=== PATIENT | female | born 1940 | race Caucasian/White ===

== ENCOUNTER 2022-10-08 19:35 | Emergency (ER) | payer MEDICARE, SELFPAY ==
[2022-10-08 19:36] VITALS: BP 174/72; PULSE 110; RESP 18; TEMP 36.6; O2SAT 97
[2022-10-08 19:52] LABS: Absolute Lymphocyte Count 4.32 X10^3/uL (0.83-4.51); Absolute Neutrophil Count 6.3 X10^3/uL (2.0-7.7); Basophil# 0.08 X10^3/uL; Basophil% 0.7 % (0-1); Eosinophil# 0.21 X10^3/uL; Eosinophils% 1.8 % (0-5); Hematocrit 35.2 % (37-47); Hemoglobin 12.6 g/dL (12.0-15.0); Lymphocyte # 4.32 X10^3/ul (0.83-4.51); Lymphocyte % 36.3 % (19-41); Mean Corp Hgb Conc 35.8 g/dL (32-36); Mean Corpuscular Hgb 30.2 pg (27.0-32.0); Mean Corpuscular Volume 84.4 fL (81-99); Mean Platelet Vol. 8.4 fl (6.2-12.0); Monocyte# 0.95 X10^3/uL; NRBC Flagged by Analyzer 0 % (0-5); Neutrophil # 6.28 X10^3/uL (2.7-7.7); Neutrophil % 52.7 % (47-70); Platelet Count 289 K/mm3 (150-450); RBC Distribution Width SD 37.1 fl (35.1-43.9); Red Blood Count 4.17 M/mm3 (4.2-5.4); White Blood Count 11.9 K/mm3 (4.4-11.0)
[2022-10-08 20:13] LABS: Anion Gap 9 (5-15); BUN 27 mg/dL (7-18); BUN/Creat Ratio 21.6 RATIO (10-20); Calcium,Total 8.9 mg/dL (8.5-10.1); Chloride 101 mmol/L (98-107); Creatinine, Serum 1.25 mg/dL (0.55-1.02); EST Glomerular Filtration Rate 43 mL/min (>60); Est Glom Filt Rate - Afr Amer 53 mL/min (>60); Glucose 238 mg/dL (74-106); Potassium 3.7 mmol/L (3.5-5.1); Sodium Level 130 mmol/L (136-145)
--- NOTE | 2022-10-08 20:25 | CT_ITS ---
We are attempting to reach an attending provider to discuss findings. An addendum with communication details will be sent when the communication is complete. EXAM: CT ABDOMEN AND PELVIS WITH INTRAVENOUS CONTRAST CLINICAL INDICATION: pain, bleeding TECHNIQUE: Helically acquired images were obtained of the abdomen and pelvis with intravenous contrast. CTDIvol = ( 12.92 ) mGy, DLP = ( 847.69 ) mGycm This CT exam was performed using one or more of the following dose reduction techniques: automated exposure control, adjustment of the mA and/or kV according to patient size, and/or use of iterative reconstruction technique. This report was created using [employer] report [employer]ot[employer] technology. CONTRAST: IV 75mL Isovue-370 COMPARISON: None. FINDINGS: LOWER THORAX: Unremarkable. Lung bases are clear. No cardiomegaly. No significant pericardial effusion. ABDOMEN: LIVER: Unremarkable. Homogeneous. No focal mass. GALLBLADDER AND BILE DUCTS: Prior cholecystectomy. No intra- or extrahepatic biliary ductal dilation. PANCREAS: Unremarkable. No focal cystic or solid mass. SPLEEN: 1.4 cm hypodense lesion involving the posterior aspect of the spleen is nonaggressive in appearance and probably benign. ADRENALS: Unremarkable. No nodules. KIDNEYS AND URETERS: Bilateral renal cysts and too small to categorize hypodensities. No other renal masses or pathology. Normal renal size and position. No hydronephrosis. STOMACH AND BOWEL: Surgical anastomosis involving the sigmoid colon. Active bleeding in the rectum. Distal colonic diverticulosis but no acute diverticulitis. No colitis. No bowel obstruction. PELVIS: APPENDIX: No evidence of acute appendicitis. BLADDER: Unremarkable. REPRODUCTIVE: Unremarkable as visualized. No mass. ABDOMEN and PELVIS: INTRAPERITONEAL SPACE: Unremarkable. No ascites or other fluid collection. No free air. BONES/JOINTS: Moderate hip osteoarthrosis bilaterally. Degenerative changes of the pelvis and spine. No suspicious lytic or blastic abnormality. SOFT TISSUES: Unremarkable. No discrete abdominal or pelvic wall hernia. VASCULATURE: Unremarkable. Abdominal aorta is non-dilated. LYMPH NODES: Unremarkable. No enlarged lymph nodes. CT/Abdomen/Pelvis W IV Cont ONLY IMPRESSION: Active bleeding in the rectum. Incidental finding of an incompletely imaged noncalcified 6 mm nodule at the right lower lobe. Suggest a dedicated chest CT (nonemergent) to evaluate for other nodules. Electronically Signed: Farhad Vallejo MD at 21:49 EDT ,
--- NOTE | 2022-10-08 20:27 | ED.VIS.GI ---
HPI HPI - GI History of Present Illness Chief Complaint: GI Bleed Informant: patient Narrative Narrative: Patient presents with bright red blood per rectum. She has had problems with this for about 2 years. She has a long history of internal and external hemorrhoids. She has had surgery on them twice. She states this just started bleeding about 530 this evening. She has had multiple episodes with bright red blood and some clots. She is not lightheaded or dizzy. No chest pain. She states she is really not getting any abdominal pain. She gets some rectal discomfort when she sits down. She is not on any anticoagulation. Although ibuprofen is on her med list she is not taking this. She is taking lisinopril hydrochlorothiazide and a thyroid medicine only. She does not take baby aspirin. She is not on any other anticoagulation. There are no other areas of bleeding. Nothing makes it specifically better or worse. She was in her normal state of health when this started bleeding. PFSH PFS Home Medications lisinopril 10 mg-hydrochlorothiazide 12.5 mg tablet 10 - 12.5 mg PO DAILY 01/16/16 [History Last Taken Unknown] levothyroxine 25 mcg tablet 25 mcg PO DAILY 10/08/22 [History Last Taken Unknown] Allergy/AdvReac Type Severity Reaction Status Date / Time latex Allergy Rash Verified 10/08/22 19:37 Sulfa (Sulfonamide AdvReac Unknown Verified 10/08/22 19:37 Antibiotics) Social History Smoking Status: Former smoker ROS ROS ED ROS Narrative A complete review of systems was performed and is negative except as documented in the history of present illness. Some specific details below. Constitutional: No recent fevers or chills. EYE: No visual complaints or pain. ENT: No difficulty swallowing. No swelling. No pain. No dental or gum bleeding CV: No chest pain or palpitations. Respiratory: No dyspnea. No hemoptysis. No difficulty taking breaths. GI: Please see history of present illness. : No frequency dysuria or hematuria. Musculoskeletal: No recent trauma. No pains. Skin: No rash. Nondiaphoretic. No abnormal bruising. Neuro: No weakness or numbness. Endocrine: No polyuria or polydipsia. EXAM Physical Exam Narrative Exam Narrative: CONSTITUTIONAL: Patient is nontoxic in appearance. The patient looks comfortable. HEENT: No notable trauma. Mucous membranes moist. No intraoral petechiae seen. EYES: No conjunctival injection. No pallor. CARDIOVASCULAR: Regular rate. Regular rhythm. No notable murmur. No JVD. She is not tachycardic when I listen to her. RESPIRATORY: No respiratory distress. Breathing is unlabored. No wheezes. No rhonchi. No rales. No pain with a deep breath. GASTROINTESTINAL: Not distended. Bowel sounds are normal. Bowel sounds do not sound increased. No tenderness. No guarding. No rebound. No palpable mass. No bruit. RECTAL EXAM: There is gross blood in pads at the rectum. There is an internal hemorrhoid that appears to be prolapsing slightly. But is only about 1-1/2 cm around. It is somewhat firm. It is mildly tender. But I see no sign of infection. I do not feel a mass in the rectum. I do not see definitive active bleeding from this although it does look inflamed and like it likely was or has been bleeding. GENITOURINARY: No tenderness over the bladder. No CVA tenderness. MUSCULOSKELETAL: Atraumatic. No peripheral edema. No cord. No tenderness along the deep venous system. No asymmetry. NEUROLOGICAL: Patient is alert and appropriate. No focal deficit noted. SKIN: No noted rashes. No diaphoresis. PSYCHIATRIC: Patient is calm. Mood is appropriate. Const Vital Signs: 10/08/22 19:36 10/08/22 21:22 10/08/22 21:35 Temperature 97.9 F Temperature Source Temporal Pulse Rate 110 H 86 83 Respiratory Rate 18 18 16 Blood Pressure 174/72 H 156/58 H 131/59 H Blood Pressure Mean 106 90 83 Pulse Ox 97 92 92 Oxygen Delivery Method Room Air Room Air Room Air MDM MDM MDM Narrative Medical decision making narrative: Independent interpretation the patient's CT of the abdomen shows what appears to be an acute blush of blood in the distal right rectum consistent with her history and exam. CBC does not show anemia but this is an acute GI bleed so this may be falsely elevated. Coags are normal Electrolytes showed mild elevation in BUN and creatinine. Glucose was high at 238 and this patient is not known to be diabetic. She has had some mild glucose intolerance looking at prior labs though. Liver function test are unremarkable. Final read of the CT abdomen was essentially's as above. I contacted our surgeon who felt that due to this ongoing bleeding and issues she is appropriate to transfer out for higher level of care. I called [facility] and the patient has had a syncopal episode in the bathroom and then she got a lightheaded episode where she dropped her pressure and her heart rate went from about 85-70. She has had a total of 5 episodes of bleeding here. I contacted [facility] because I think she needed acute intervention. I explained to the call center that although her hemoglobin is normal I still going to transfuse her due to the ongoing blood loss and 2 lightheaded episodes. I think she is truly lower. I think this is actively bleeding and may need surgical intervention. They requested a call back with final reading of the CT. Final reading was essentially the same as I had told them. There was a 6 mm nodule noted at the right lower lobe which was incidental finding and not likely the cause of today's event. She then contacted Dr. Tanner of surgery who referred to medicine. She then discussed the case with Dr. Toledo who has excepted. Patient's current vital at that time was 131/59 with with a pulse of 83 and 92% on room air. Afebrile 97.9. Even though this patient's hemoglobin is good and her pressure is currently good I consider this active bleeding that may need intervention. I think she does need to be had a fully capable hospital with full level of care that can manage this. Family was updated. She was also having some pressure and rectal pain she was given a small dose of fentanyl. Lab Data Labs: Laboratory Results - last 24 hr 10/08/22 10/08/22 10/08/22 19:43 19:43 19:43 WBC 11.9 H RBC 4.17 L Hgb 12.6 Hct 35.2 L MCV 84.4 MCH 30.2 MCHC 35.8 RDW Std Deviation 37.1 RDW Coeff of Grisel 12.0 Plt Count 289 MPV 8.4 Immature Gran % (Auto) 0.500 Neut % (Auto) 52.7 Lymph % (Auto) 36.3 [place] % (Auto) 8.0 Eos % (Auto) 1.8 Baso % (Auto) 0.7 Absolute Neuts (auto) 6.3 Absolute Lymphs (auto) 4.32 Nucleated RBC % 0 PT 12.6 INR 1.0 APTT 28.8 Sodium 130 L Potassium 3.7 Chloride 101 Carbon Dioxide 20.0 L Anion Gap 9 BUN 27 H Creatinine 1.25 H Est GFR (MDRD) Af Amer 53 L Est GFR (MDRD) Non-Af 43 L BUN/Creatinine Ratio 21.6 H Glucose 238 H Calcium 8.9 Total Bilirubin Direct Bilirubin AST ALT Alkaline Phosphatase Total Protein Albumin Globulin Blood Type Antibody Screen Crossmatch 10/08/22 10/08/22 19:43 21:18 WBC RBC Hgb Hct MCV MCH MCHC RDW Std Deviation RDW Coeff of Grisel Plt Count MPV Immature Gran % (Auto) Neut % (Auto) Lymph % (Auto) [place] % (Auto) Eos % (Auto) Baso % (Auto) Absolute Neuts (auto) Absolute Lymphs (auto) Nucleated RBC % PT INR APTT Sodium Potassium Chloride Carbon Dioxide Anion Gap BUN Creatinine Est GFR (MDRD) Af Amer Est GFR (MDRD) Non-Af BUN/Creatinine Ratio Glucose Calcium Total Bilirubin 0.30 Direct Bilirubin 0.07 AST 18 ALT 26 Alkaline Phosphatase 57 Total Protein 7.6 Albumin 3.9 Globulin 3.7 Blood Type A POSITIVE Antibody Screen NEGATIVE Crossmatch See Detail Radiography Diagnostic Testing: Clinical Impression(s) from Imaging Studies Abdomen/Pelvis CT 10/08/22 20:25 IMPRESSION: Active bleeding in the rectum. Incidental finding of an incompletely imaged noncalcified 6 mm nodule at the right lower lobe. Suggest a dedicated chest CT (nonemergent) to evaluate for other nodules. Electronically Signed: Farhad Vallejo MD at 21:49 EDT , ADDENDUM: 10/08/22 2210 IMPRESSION: Active bleeding in the rectum. Incidental finding of an incompletely imaged noncalcified 6 mm nodule at the right lower lobe. Suggest a dedicated chest CT (nonemergent) to evaluate for other nodules. N.B. : The above Results were Read Back by Farhad Vallejo MD to Nicholas Carranza MD, and understanding confirmed on 10/08/2022 22:03:55 (ET). Electronically Signed: Farhad Vallejo MD at 21:49 EDT , ADDENDUM: 10/08/22 3351 IMPRESSION: undefined Critical Care Time Critical Care Time: Yes Critical care time (excluding procedures): 30-74 minutes, Discussing w/Patient &/or Family/Manager Fraud, Discussing w/Consultants, Arranging Admission or Transfer, Performing Direct Patient Care at Bedside and - (52 minutes, repeat evaluation, changing therapies, discussing with consultants and family) Discharge Plan Triage Chief Complaint: GI Bleed ED Provider: Nicholas Carranza Dx/Rx/DC Orders Clinical Impression: Rectal hemorrhage, Syncopal episodes, Hyperglycemia Prescriptions: No Action lisinopril-hydrochlorothiazide 1 EACH tablet 10 - 12.5 mg PO DAILY Label Comments: blood pressure levothyroxine 25 mcg tablet 25 mcg PO DAILY Label Comments: take 1 tablet by mouth once daily ON AN EMPTY STOMACH for THYROID Primary Care Provider: Elke Painting Referrals: Care Physician,No Primary [Non-Staff] - Disposition Disposition: Acute Care Hospital Discharge Location: [facility]
[2022-10-08 20:44] LABS: Prothrombin Time (Protime)PT. 12.6 SECONDS (11.7-14.9)
[2022-10-08 20:45] LABS: Partial Thromboplast Time 28.8 Seconds (24.1-36.2)
[2022-10-08 21:09] LABS: AST(SGOT) 18 U/L (15-37); Alanine Aminotransfer ALT/SGPT 26 U/L (13-56); Albumin, Serum 3.9 g/dL (3.2-5.0); Alkaline Phosphatase 57 U/L (45-117); Bilirubin, Direct 0.07 mg/dL (0.00-0.30); Globulin 3.7 g/dL (2.2-4.2); Protein, Total 7.6 g/dL (6.4-8.2)
[2022-10-08 21:13] VITALS: BMI 29.2
[2022-10-08 21:22] VITALS: BP 156/58; PULSE 86; RESP 18; O2SAT 92
[2022-10-08 21:35] VITALS: BP 131/59; PULSE 83; RESP 16; O2SAT 92
--- NOTE | 2022-10-08 21:47 | ED.RN ---
This RN walked into bathroom, pt pale sand not responding. Notified monorail charger operator and Dr. Carranza. Pt placed into bed and put back into room. Pt alert and talking after being place into bed. BP 156/58, Tere notified.
--- NOTE | 2022-10-08 21:49 | ED.RN ---
RN in room, pt HR dropped to 40. Pt complaining of feeling hot, pt becoming pale. BP 77/36 but still alert and talking. Dr. Carranza notified, pt BM camacho red blood with clots. 1,000 mL bolus given on pressure bag, pt BP now 131/59, HR 84.
[2022-10-08] MEDS: fentaNYL 100 MCG/2 ML Ampul 25 MCG IV (22:33)
[2022-10-08 23:30] VITALS: BP 135/52; PULSE 83; RESP 18; TEMP 36.4; O2SAT 93
--- NOTE | 2022-10-08 23:40 | ED.RN ---
Attempted to call report x2 with no answer.
[2022-10-08 23:45] VITALS: BP 135/52; PULSE 87; RESP 19; TEMP 36.6; O2SAT 94
[2022-10-08 23:51] VITALS: BP 135/52; PULSE 87; RESP 18; TEMP 36.6; O2SAT 95
--- NOTE | 2022-10-08 23:58 | ED.RN ---
Report given to Marisel LOVE at [facility].
== END 2022-10-09 00:21 | disposition short-term general hospital (02) ==
PROVIDERS: Emergency Provider Emergency Medicine; PCP Internal Medicine; Visit Provider Emergency Medicine
DX: K62.5 Hemorrhage of anus and rectum (principal); R55 Syncope and collapse; R73.9 Hyperglycemia, unspecified; Z87.891 Personal history of nicotine dependence; Z79.899 Other long term (current) drug therapy
CPT/HCPCS: 74177; 80048; 80076; 85025; 85610; 85730; 86850; 86900; 86901; 86920; 86922; 96374; 99285; J7030; J7040; P9016; Q9967; A4216

== ENCOUNTER 2023-09-17 18:41 | Emergency (ER) | payer MEDICARE, SELFPAY ==
[2023-09-17] VITALS (16 sets, daily range): BP systolic 99–129; BP diastolic 45–88; PULSE 67–82; RESP 11–27; TEMP 36.7; O2SAT 92–96; BMI 25.3
--- NOTE | 2023-09-17 19:27 | EKG12_ITS ---
Test Reason : DYSRHYTHMIA Blood Pressure : / mmHG Vent. Rate : 082 BPM Atrial Rate : 082 BPM P-R Int : 130 ms QRS Dur : 074 ms QT Int : 368 ms P-R-T Axes : 062 055 031 degrees QTc Int : 429 ms Normal sinus rhythm Normal ECG Confirmed by AMANUEL STRAUSS, REX ([id number]), multimedia editor JEAN-PIERRE GARRETT ([id number]) on 09/18/2023 9:36:26 AM Referred By: DIO Confirmed By:REX VITAL MD
--- NOTE | 2023-09-17 19:30 | RAD_ITS ---
STUDY: X-RAY CHEST REASON FOR EXAM: Female, 83 years old. chest pain . Recent rectal surgery. TECHNIQUE: Single AP portable view of the chest. COMPARISON: None. FINDINGS: Left-sided Mediport catheter terminates in the right atrium. The lungs are clear and expanded. There is no demonstrated pleural abnormality. Normal size heart. Normal mediastinum and selin. Normal visualized pulmonary arteries. Normal visualized aortic arch and descending thoracic aorta. Normal visualized thoracic spine. Normal visualized ribs, clavicles, and shoulders. There is no demonstrated abnormality of the visualized soft tissue structures of the upper abdomen. RAD/Chest 1 View (Portable) IMPRESSION: No definite acute or significant abnormality seen. Electronically Signed: Saturnino Capellan MD at 19:50 EDT ,
[2023-09-17 19:43] LABS: Absolute Lymphocyte Count 2.15 X10^3/uL (0.83-4.51); Absolute Neutrophil Count 9.3 X10^3/uL (2.0-7.7); Basophil# 0.08 X10^3/uL; Basophil% 0.6 % (0-1); Eosinophil# 0.26 X10^3/uL; Eosinophils% 2.1 % (0-5); Hematocrit 35.3 % (37-47); Hemoglobin 11.8 g/dL (12.0-15.0); Lymphocyte # 2.15 X10^3/ul (0.83-4.51); Lymphocyte % 17.1 % (19-41); Mean Corp Hgb Conc 33.4 g/dL (32-36); Mean Corpuscular Hgb 28.9 pg (27.0-32.0); Mean Corpuscular Volume 86.3 fL (81-99); Mean Platelet Vol. 9.2 fl (6.2-12.0); Monocyte# 0.73 X10^3/uL; Monocyte% 5.8 % (0-10); NRBC Flagged by Analyzer 0 % (0-5); Neutrophil # 9.26 X10^3/uL (2.7-7.7); Neutrophil % 73.7 % (47-70); Platelet Count 519 K/mm3 (150-450); RBC Distribution Width CV 13.7 % (11.6-14.6); RBC Distribution Width SD 43.1 fl (35.1-43.9); Red Blood Count 4.09 M/mm3 (4.2-5.4); White Blood Count 12.6 K/mm3 (4.4-11.0)
[2023-09-17 20:09] LABS: Anion Gap 9 (5-15); BUN 34 mg/dL (7-18); BUN/Creat Ratio 29.1 RATIO (10-20); Calcium,Total 9.7 mg/dL (8.5-10.1); Chloride 104 mmol/L (98-107); Creatinine, Serum 1.17 mg/dL (0.55-1.02); EST Glomerular Filtration Rate 47 mL/min (>60); Est Glom Filt Rate - Afr Amer 57 mL/min (>60); Estimated Creatinine Clearance 31.18 ml/min; Glucose 180 mg/dL (74-106); Potassium 4.2 mmol/L (3.5-5.1); Sodium Level 133 mmol/L (136-145); Troponin-I HS 5 pg/mL (3.0-54.0)
--- NOTE | 2023-09-17 20:15 | CT_ITS ---
STUDY: CT BRAIN WITHOUT CONTRAST REASON FOR EXAM: Female, 83 years old. head injury RADIATION DOSAGE (If Supplied By Facility): CTDIvol = ( 44.99 ) mGy, DLP = ( 779.24 ) mGycm TECHNIQUE: Transaxial CT imaging of the brain was performed without administration of intravenous contrast material. Individualized dose optimization techniques were used for this CT. COMPARISON: No relevant priors. FINDINGS: Normal soft tissue structures. Normal calvarium. Normal size ventricles and extra-axial spaces for the patient''s age. Normal white matter tracts of the cerebral hemispheres. Normal basal ganglia and thalami. Normal brainstem. Normal cerebellum. There is no intracranial hemorrhage. There are no findings of an acute ischemic infarction. Normal visualized paranasal sinuses. CT/Brain/Head without Contrast IMPRESSION: Normal unenhanced CT scan of the brain. Electronically Signed: Saturnino Capellan MD at 20:49 EDT ,
--- NOTE | 2023-09-17 20:15 | CT_ITS ---
EXAM: CT CERVICAL SPINE WITHOUT INTRAVENOUS CONTRAST CLINICAL INDICATION: trauma TECHNIQUE: Helically acquired images were obtained of the cervical spine without intravenous contrast. 2D reformatted images were reviewed. This CT exam was performed using one or more of the following dose reduction techniques: automated exposure control, adjustment of the mA and/or kV according to patient size, and/or use of iterative reconstruction technique. RADIATION DOSE: CTDIvol = 16.67 mGy, DLP = 336.22 mGy-cm COMPARISON: No relevant prior studies available. FINDINGS: VERTEBRAE: No acute abnormality. Postsurgical changes of discectomies and fusion between C5-C7. No fracture. No traumatic subluxation. No discrete lytic or blastic abnormality. Normal alignment. Normal craniocervical junction and cervicothoracic junction. DISCS/SPINAL CANAL/NEURAL FORAMINA: Multilevel [id number] degenerative changes. No critical stenosis. SOFT TISSUES: Unremarkable. No prevertebral soft tissue swelling. LYMPH NODES: Unremarkable. No cervical adenopathy. LUNG APICES: Unremarkable as visualized. Clear. CT/Spine Cervical without Contras IMPRESSION: No evidence of acute cervical spinal fracture or spondylolisthesis. Electronically Signed: Saturnino Capellan MD at 20:51 EDT ,
[2023-09-17] MEDS: 0.9% Normal Saline (1000mL) 1,000 ML 999 ML IV (20:33)
--- NOTE | 2023-09-17 21:23 | EDS_ITS ---
HPI History of Present Illness Chief Complaint: Syncope Narrative Narrative: 83-year-old female presenting after an episode of syncope. Patient states she was changing her colostomy bag when she fainted. She fell and hit her head on the back of the right side and lost consciousness she thinks for a couple of moments. Patient denies headache, visual complaints, nausea, vomiting. She does have some right-sided neck pain. She has pain in the left hip but states that is because she has been laying on her left side because she cannot sit on her rectum after this colorectal surgery which was performed in the beginning of August which sound like it was the first. Patient had Dr. Hickman as her colorectal surgeon and there was a plastic surgeon involved doing a flap of the rectum. Patient states that she noted some blood on the rectum afterwards and think she is avulsed to the area. Patient states her abdomen does not hurt. Colostomy bag is in place. She has not noticed any black or bloody stools prior to this event. [facility] Medical History GERD (gastroesophageal reflux disease) Hypertension Hypothyroidism Rectal cancer Home Medications levothyroxine 25 mcg tablet 25 mcg PO DAILY 10/08/22 [History Last Taken Unknown] amlodipine 5 mg tablet 5 mg PO DAILY 09/17/23 [History Last Taken Unknown] lisinopril 40 mg tablet 40 mg PO DAILY 09/17/23 [History Last Taken Unknown] Allergy/AdvReac Type Severity Reaction Status Date / Time latex Allergy Rash Verified 09/17/23 18:42 Sulfa (Sulfonamide AdvReac Unknown Verified 09/17/23 18:42 Antibiotics) Surgical History History of creation of ostomy History of hysterectomy Social History Smoking Status: Former smoker ROS ROS ED Constitutional Constitutional ED: Denies chills, fever(s) or sweats Eyes Eyes: Denies blurry vision or change in vision ENT ENT ED: Denies ear pain or sore throat Cardiovascular Cardiovascular: Denies chest pain, palpitations or racing heartbeat Respiratory/Chest Respiratory/Chest: Denies cough, dyspnea or sputum Gastrointestinal Gastrointestinal: Denies abdominal pain, constipation, diarrhea, nausea or vomiting Genitourinary Genitourinary ED: Denies dysuria, hematuria or urinary frequency Musculoskeletal Musculoskeletal: Denies arthralgias, myalgias or neck pain Integumentary Denies abscess, Abrasions or rash Neurologic Neurologic: Denies headache(s), paresthesias or weakness Psychiatric Psychiatric: Denies anxiety, depression, suicidal ideation or suicidal thoughts Endocrine Endocrinology: Denies polydipsia or polyuria EXAM Physical Exam Const Vital Signs: 09/17/23 18:42 09/17/23 18:55 09/17/23 19:33 Temperature 98.1 F Temperature Source Oral Pulse Rate 80 Respiratory Rate 15 Respiratory Effort Normal Respiratory Pattern Normal Blood Pressure 99/88 H Blood Pressure Mean 91 Pulse Ox 94 Oxygen Delivery Method Room Air Room Air 09/17/23 19:10 09/17/23 19:15 09/17/23 19:30 Temperature Temperature Source Pulse Rate 76 77 77 Respiratory Rate 22 H 16 18 Respiratory Effort Respiratory Pattern Blood Pressure 110/54 L 113/55 L 102/55 L Blood Pressure Mean 69 71 68 Pulse Ox 95 93 92 Oxygen Delivery Method Room Air 09/17/23 21:00 Temperature Temperature Source Pulse Rate 71 Respiratory Rate 14 Respiratory Effort Respiratory Pattern Blood Pressure 124/55 H Blood Pressure Mean 75 Pulse Ox 95 Oxygen Delivery Method Positive well nourished and well developed General Appearance ED: well developed and NAD; Negative for pallor HEENT Reports moist mucous membranes Negative for trauma Eyes PERRL and EOMs intact bilaterally General Eye ED: Negative for pale conjunctiva or scleral icterus Chest Wall inspection of chest normal Resp normal respiratory effort and clear to auscultation bilaterally Auscultation: Negative for rales or rhonchi Cardio regular rate and regular rhythm GI normal to inspection, nondistended, normoactive bowel sounds GI Narrative: Rectal flap wound dehiscence with stable controlled bleeding. Colostomy bag in place with brown stool. No black or bloody stool. Neuro oriented x3 and CN's II-XII intact bilaterally Sensorium / Orientation: alert Motor Exam: strength 5/5 throughout Psych mental status grossly normal Skin no rashes or lesions noted General Skin Exam: Negative for jaundice or pallor MDM MDM MDM Narrative Medical decision making narrative: Patient presenting with syncopal episode while changing her colostomy bag. She denies chest pain, palpitations, shortness of breath. She denies fevers or chills. She denies nausea or vomiting. She is at her mental baseline although she states she hit her head and lost consciousness for a few moments. Differential includes dysrhythmia, dehydration, anemia, electrolyte abnormality, intracranial hemorrhage, C-spine fracture, skull fracture, ACS, syncope. Patient reports that this occurred while changing her colostomy bag and this could possibly be vasovagal. Patient noted rectal bleeding after her fall and looks like the flap from her colorectal surgery over her rectum/anus is dehisced. No active bleeding. Colostomy bag in place. CBC was obtained to assess white blood cell count, hemoglobin, platelets. BMP to assess renal function, electrolytes, glucose, anion gap. High-sensitivity troponin EKG to assess for ischemia/dysrhythmia. Chest x-ray to rule out pneumonia. CT brain and cervical spine were obtained to rule intracranial hemorrhage or C-spine fracture. Ultimately lab work is reassuring. CBC shows white blood cell count of 12.6. Hemoglobin 11.8. Platelets 519. Renal function near baseline with some prerenal azotemia. Patient given a liter of IV fluids. High-sensitivity opponent is 5. EKG on my interpretation shows a normal sinus rhythm with a ventricular rate of 82 bpm without ischemic change or ectopy. Chest x-ray my interpretation is no acute process. Radiologist interprets this and agrees. After speaking with Dr. Bobby from colorectal surgery who is on-call for Dr. Hickman he recommended that I call the plastics team and specifically stated that Dr. Antunez was the plastic surgeon who did the flap over the rectum and if there was a dehiscence he recommended that the patient see plastics. He also stated that if plastics felt this was a colorectal problem that at that point we can call him back to arrange for transfer. Patient was given oxycodone for pain as well as Zofran for nausea. Patient is consented for transport. Ultimately did not find a source of syncopal episode other than some dehydration. Impression: 1. Syncope 2. Dehydration 3. Rectal wound dehiscence 4. Closed head injury Lab Data Attestation: I reviewed the patient's lab results. Labs: Laboratory Results - last 24 hr 09/17/23 18:26 WBC 12.6 H RBC 4.09 L Hgb 11.8 L Hct 35.3 L MCV 86.3 MCH 28.9 MCHC 33.4 RDW Std Deviation 43.1 RDW Coeff of Grisel 13.7 Plt Count 519 H MPV 9.2 Immature Gran % (Auto) 0.700 Neut % (Auto) 73.7 H Lymph % (Auto) 17.1 L [place] % (Auto) 5.8 Eos % (Auto) 2.1 Baso % (Auto) 0.6 Absolute Neuts (auto) 9.3 H Absolute Lymphs (auto) 2.15 Nucleated RBC % 0 Sodium 133 L Potassium 4.2 Chloride 104 Carbon Dioxide 20.0 L Anion Gap 9 BUN 34 H Creatinine 1.17 H Estim Creat Clear Calc 31.18 Est GFR (MDRD) Af Amer 57 L Est GFR (MDRD) Non-Af 47 L BUN/Creatinine Ratio 29.1 H Glucose 180 H Calcium 9.7 Troponin I High Sens 5 Radiography Diagnostic Testing: Clinical Impression(s) from Imaging Studies Chest X-Ray 09/17/23 19:30 IMPRESSION: No definite acute or significant abnormality seen. Electronically Signed: Saturnino Capellan MD at 19:50 EDT Reading Location ID and State: [facility] / [place] , Service support , Brain CT 09/17/23 20:15 IMPRESSION: Normal unenhanced CT scan of the brain. Electronically Signed: Saturnino Capellan MD at 20:49 EDT Reading Location ID and State: [employer] / [place] , Service support , Cervical Spine CT 09/17/23 20:15 IMPRESSION: No evidence of acute cervical spinal fracture or spondylolisthesis. Electronically Signed: Saturnino Capellan MD at 20:51 EDT , Discharge Plan Triage Chief Complaint: Syncope Other Complaint: GI Bleed ED Provider: Andrea Del Cid Dx/Rx/DC Orders Prescriptions: No Action levothyroxine 25 mcg tablet 25 mcg PO DAILY Patient Comments: take 1 tablet by mouth once daily ON AN EMPTY STOMACH for THYROID amlodipine 5 mg tablet 5 mg PO DAILY lisinopril 40 mg tablet 40 mg PO DAILY Primary Care Provider: Elke Painting Referrals: Elke Painting MD [Primary Care Provider] -
[2023-09-17] MEDS: Ondansetron 4 MG/2 ML Vial IV (21:33)
[2023-09-17] MEDS: oxyCODONE 5 MG Tablet PO (21:42)
--- NOTE | 2023-09-17 22:59 | ED.RN ---
CALLED [facility] AT [id number] FOR AN UPDATE ON THE TRANSFER. THEY SAID THEY PAGED OUT THE DOC AGAIN, BUT WE'RE WAITING ON THE PLASTIC DOC TO CALL BACK
[2023-09-18] VITALS (7 sets, daily range): BP systolic 109–129; BP diastolic 51–60; PULSE 67–79; RESP 12–20; TEMP 37.2; O2SAT 92–96
--- NOTE | 2023-09-18 00:39 | EX.ED.DYSGE1 ---
HPI History of Present Illness Chief Complaint: Syncope [facility] Medical History GERD (gastroesophageal reflux disease) Hypertension Hypothyroidism Rectal cancer Home Medications levothyroxine 25 mcg tablet 25 mcg PO DAILY 10/08/22 [History Last Taken Unknown] amlodipine 5 mg tablet 5 mg PO DAILY 09/17/23 [History Last Taken Unknown] lisinopril 40 mg tablet 40 mg PO DAILY 09/17/23 [History Last Taken Unknown] Allergy/AdvReac Type Severity Reaction Status Date / Time latex Allergy Rash Verified 09/17/23 18:42 Sulfa (Sulfonamide AdvReac Unknown Verified 09/17/23 18:42 Antibiotics) Surgical History History of creation of ostomy History of hysterectomy Social History Smoking Status: Former smoker EXAM Physical Exam Const Vital Signs: 09/17/23 18:42 09/17/23 18:55 09/17/23 19:33 Temperature 98.1 F Temperature Source Oral Pulse Rate 80 Respiratory Rate 15 Respiratory Effort Normal Respiratory Pattern Normal Blood Pressure 99/88 H Blood Pressure Mean 91 Pulse Ox 94 Oxygen Delivery Method Room Air Room Air 09/17/23 19:10 09/17/23 19:15 09/17/23 19:30 Temperature Temperature Source Pulse Rate 76 77 77 Respiratory Rate 22 H 16 18 Respiratory Effort Respiratory Pattern Blood Pressure 110/54 L 113/55 L 102/55 L Blood Pressure Mean 69 71 68 Pulse Ox 95 93 92 Oxygen Delivery Method Room Air 09/17/23 21:00 09/17/23 21:15 09/17/23 21:30 Temperature Temperature Source Pulse Rate 71 73 74 Respiratory Rate 14 16 15 Respiratory Effort Respiratory Pattern Blood Pressure 124/55 H 125/49 H 122/53 H Blood Pressure Mean 75 72 72 Pulse Ox 95 96 Oxygen Delivery Method 09/17/23 21:45 09/17/23 22:00 09/17/23 22:15 Temperature Temperature Source Pulse Rate 72 74 76 Respiratory Rate 14 11 L 18 Respiratory Effort Respiratory Pattern Blood Pressure 120/45 L 115/50 L 118/50 L Blood Pressure Mean 67 70 70 Pulse Ox 94 Oxygen Delivery Method 09/17/23 22:30 09/17/23 22:45 09/17/23 23:00 Temperature Temperature Source Pulse Rate 82 77 77 Respiratory Rate 17 27 H 22 H Respiratory Effort Respiratory Pattern Blood Pressure 128/51 H 119/50 L 129/56 H Blood Pressure Mean 73 69 74 Pulse Ox 95 Oxygen Delivery Method 09/17/23 23:15 09/17/23 23:30 Temperature Temperature Source Pulse Rate 67 Respiratory Rate 16 Respiratory Effort Respiratory Pattern Blood Pressure 109/50 L 103/55 L Blood Pressure Mean 67 71 Pulse Ox 93 Oxygen Delivery Method Room Air MDM MDM MDM Narrative Medical decision making narrative: Patient was turned over to me by Dr. Del Cid @ 1130 pm Brief history: 83 female presents with loss of consciousness and wound dehiscence. Physical exam: No focal cardiopulmonary abnormalities, no pulse deficits, no acute distress, rectal exam performed with lumber scaler in the room shows a large approximately 4 cm area of dehisced wound with sutures noted at the margins, no active bleeding but oozing serosanguineous drainage noted. There is a significant amount of gaping of the wound. Labs and images reviewed (if obtained): CT scan of the head, CT scan cervical spine showed no acute traumatic injuries I have personally reviewed the patient's chest x-ray. Chest x-ray is unremarkable for pulmonary edema, pneumothorax, pneumonia or focal cardiopulmonary abnormality. High-sensitivity troponin is negative, no evidence of myocardial ischemia CBC leukocytosis, mild anemia, no thrombocytopenia BMP with hyponatremia, no obvious BREONNA, no evidence of metabolic acidosis or endorgan hypoperfusion MDM/plan: No acute events under my care. Patient made hemodynamically stable afebrile nontoxic-appearing. Exam as above. Gave 1 dose of 2 mg IV morphine and 1 dose to have milligrams of IV Benadryl. Spoke with Dr. Huffman (plastic surgery senior resident) who recommended to not to transfer the patient. Spoke with Dr. Bobby (colorectal surgery) who accepted patient's case in transfer to undergo further wound evaluation. Patient was accepted. Bed obtained. Patient awaiting transport via ground. Lab Data Labs: Laboratory Results - last 24 hr 09/17/23 18:26 WBC 12.6 H RBC 4.09 L Hgb 11.8 L Hct 35.3 L MCV 86.3 MCH 28.9 MCHC 33.4 RDW Std Deviation 43.1 RDW Coeff of Grisel 13.7 Plt Count 519 H MPV 9.2 Immature Gran % (Auto) 0.700 Neut % (Auto) 73.7 H Lymph % (Auto) 17.1 L [place] % (Auto) 5.8 Eos % (Auto) 2.1 Baso % (Auto) 0.6 Absolute Neuts (auto) 9.3 H Absolute Lymphs (auto) 2.15 Nucleated RBC % 0 Sodium 133 L Potassium 4.2 Chloride 104 Carbon Dioxide 20.0 L Anion Gap 9 BUN 34 H Creatinine 1.17 H Estim Creat Clear Calc 31.18 Est GFR (MDRD) Af Amer 57 L Est GFR (MDRD) Non-Af 47 L BUN/Creatinine Ratio 29.1 H Glucose 180 H Calcium 9.7 Troponin I High Sens 5 Radiography Diagnostic Testing: Clinical Impression(s) from Imaging Studies Chest X-Ray 09/17/23 19:30 IMPRESSION: No definite acute or significant abnormality seen. Electronically Signed: Saturnino Capellan MD at 19:50 EDT Reading Location ID and State: [facility] / [place] , Service support , Brain CT 09/17/23 20:15 IMPRESSION: Normal unenhanced CT scan of the brain. Electronically Signed: Saturnino Capellan MD at 20:49 EDT Reading Location ID and State: [facility] / [place] , Service support , Cervical Spine CT 09/17/23 20:15 IMPRESSION: No evidence of acute cervical spinal fracture or spondylolisthesis. Electronically Signed: Saturnino Capellan MD at 20:51 EDT [place] Location ID and State: [facility] / [place] , Service support , Discharge Plan Triage Chief Complaint: Syncope Other Complaint: GI Bleed ED Provider: Andrea Del Cid Dx/Rx/DC Orders Prescriptions: No Action levothyroxine 25 mcg tablet 25 mcg PO DAILY Patient Comments: take 1 tablet by mouth once daily ON AN EMPTY STOMACH for THYROID amlodipine 5 mg tablet 5 mg PO DAILY lisinopril 40 mg tablet 40 mg PO DAILY Primary Care Provider: Elke Painting Referrals: Elke Painting MD [Primary Care Provider] -
[2023-09-18] MEDS: Morphine 2 MG/ML Syringe IV ×2 (00:52→02:16)
[2023-09-18] MEDS: DiphenhydrAMINE 50 MG/ML Syringe 25 MG IV (00:52)
--- NOTE | 2023-09-18 01:39 | ED.RN ---
0128: REPORT CALLED TO [facility] H50 NURSEBAUTISTA
--- NOTE | 2023-09-18 01:50 | ED.RN ---
SPOKE WITH [facility] NURSE BAUTISTA, UPDATED HER THAT PATIENT TRANSPORT TIME ADJUSTED TO 0233
== END 2023-09-18 02:31 | disposition short-term general hospital (02) ==
LOC: ED 20:51
PROVIDERS: Emergency Provider Student in an Organized Health Care Education/Training Program; PCP Internal Medicine; Visit Provider Student in an Organized Health Care Education/Training Program
DX: R55 Syncope and collapse (principal); Z93.3 Colostomy status; S06.9X1A Unspecified intracranial injury with loss of consciousness of 30 minutes or less, initial encounter; E86.0 Dehydration; T81.31XA Disruption of external operation (surgical) wound, not elsewhere classified, initial encounter; W19.XXXA Unspecified fall, initial encounter; I10 Essential (primary) hypertension; E03.9 Hypothyroidism, unspecified; Z79.899 Other long term (current) drug therapy; Z87.891 Personal history of nicotine dependence
CPT/HCPCS: 70450; 71045; 72125; 80048; 84484; 85025; 93005; 96361; 96374; 96375; 96376; 99285; A4216; J2405

== ENCOUNTER 2024-05-30 19:01 | Emergency (ER) | payer MEDICARE, SELFPAY ==
[2024-05-30 19:05] VITALS: BP 159/72; PULSE 89; RESP 16; TEMP 36.8; O2SAT 94; BMI 26.8
--- NOTE | 2024-05-30 19:16 | CT_ITS ---
STUDY: CT ABDOMEN AND PELVIS WITH CONTRAST REASON FOR EXAM: Female, 84 years old. pt concerned for bowel through colostomy RADIATION DOSAGE (If Supplied By Facility): CTDIvol = ( 11.80 ) mGy, DLP = ( 707.88 ) mGycm TECHNIQUE: Transaxial images were obtained from the dome of the diaphragm to the symphysis pubis without oral contrast. IV 100mL Isovue-370 was administered. Sagittal and coronal images were reconstructed. Individualized dose optimization techniques were used for this CT. COMPARISON: October 08, 2022 FINDINGS: Mild subsegmental atelectasis in both lower lobes. There are also 2 small noncalcified nodules in left lower lobe possibly metastatic. The visualized portions of the heart are within normal limits. Liver is normal in size homogeneous attenuation. There are no space-occupying lesions however there is mild bile duct dilatation likely physiologic in association with prior cholecystectomy.. . Tiny hypoattenuated density in the spleen most likely benign. Normal pancreas. Normal bilateral adrenal glands. Small right renal cyst noted which will not require additional imaging. Normal left kidney. Normal visualized stomach. Normal small intestine. Minor diverticular changes of the colon without evidence for acute diverticulitis. No evidence for acute appendicitis Atherosclerotic change of the aorta without evidence for aneurysm. Normal inferior vena cava. Normal retroperitoneum. Postsurgical changes involving the rectosigmoid with diverting colostomy in left lower quadrant... There is a trace of fluid in left paracolic gutter Uterus has been removed surgically.. There is a cystic lesion in the pelvis possibly ovarian There is diffuse presacral soft tissue swelling possibly neoplastic Normal abdominal wall. Normal osseous structures. CT/Abdomen/Pelvis W IV Cont ONLY IMPRESSION: Postsurgical changes of the rectosigmoid and diverting colostomy left lower quadrant without evidence for proximal obstruction. Presacral soft tissue thickening possibly due to neoplastic and suspicious for pulmonary metastasis in left lower lobe which is new finding since prior exam. Electronically Signed: Carlos Sweet MD at 22:11 EST ,
[2024-05-30 20:03] LABS: Absolute Lymphocyte Count 0.99 X10^3/uL (0.83-4.51); Basophil# 0.05 X10^3/uL; Basophil% 0.4 % (0-1); Eosinophil# 0.14 X10^3/uL; Eosinophils% 1.2 % (0-5); Hematocrit 36.4 % (37-47); Hemoglobin 12.6 g/dL (12.0-15.0); Lymphocyte # 0.99 X10^3/ul (0.83-4.51); Lymphocyte % 8.2 % (19-41); Mean Corp Hgb Conc 34.6 g/dL (32-36); Mean Corpuscular Hgb 29.6 pg (27.0-32.0); Mean Corpuscular Volume 85.6 fL (81-99); Mean Platelet Vol. 8.4 fl (6.2-12.0); Monocyte# 0.89 X10^3/uL; Monocyte% 7.3 % (0-10); NRBC Flagged by Analyzer 0 % (0-5); Neutrophil # 9.99 X10^3/uL (2.7-7.7); Neutrophil % 82.3 % (47-70); Platelet Count 189 K/mm3 (150-450); RBC Distribution Width CV 13.2 % (11.6-14.6); RBC Distribution Width SD 40.8 fl (35.1-43.9); Red Blood Count 4.25 M/mm3 (4.2-5.4); White Blood Count 12.1 K/mm3 (4.4-11.0)
[2024-05-30 20:20] LABS: ALB/GLOB Ratio 1.1 RATIO (0.9-2.4); AST(SGOT) 13 U/L (15-37); Alanine Aminotransfer ALT/SGPT 21 U/L (13-56); Albumin, Serum 3.6 g/dL (3.2-5.0); Alkaline Phosphatase 72 U/L (45-117); Anion Gap 8 (5-15); BUN 28 mg/dL (7-18); BUN/Creat Ratio 31.4 RATIO (10-20); Calcium,Total 9.4 mg/dL (8.5-10.1); Chloride 103 mmol/L (98-107); Creatinine, Serum 0.89 mg/dL (0.55-1.02); EST Glomerular Filtration Rate 64 mL/min (>60); Est Glom Filt Rate - Afr Amer 77 mL/min (>60); Estimated Creatinine Clearance 41.36 ml/min; Globulin 3.2 g/dL (2.2-4.2); Glucose 136 mg/dL (74-106); Lipase 23 U/L (13-75); Potassium 3.7 mmol/L (3.5-5.1); Protein, Total 6.8 g/dL (6.4-8.2); Sodium Level 137 mmol/L (136-145)
--- NOTE | 2024-05-30 20:27 | EDS_ITS ---
HPI History of Present Illness Chief Complaint: Other, Pain/Inj Narrative Narrative: Patient is a 84-year-old female past medical history of colon cancer with colostomy approximately 10 months ago at [facility], hypertension, GERD who presents to the emergency department with a chief complaint of leaking colostomy. Patient states that earlier today she changed out her colostomy and noted that later this evening that stool was leaking around the colostomy site. Patient notes that she felt like there was some bowel protruding into the colostomy bag. Patient denies any abdominal pain. Patient states that she has not started chemotherapy as she is waiting for approval from insurance. Patient denies any other complaints at this point time [facility] Medical History GERD (gastroesophageal reflux disease) Rectal cancer Hypothyroidism Hypertension Home Medications ?Medication ?Instructions ?Recorded ?Last Taken ?Type levothyroxine 25 mcg tablet 25 mcg PO DAILY 10/08/22 Unknown History amlodipine 5 mg tablet 5 mg PO DAILY 09/17/23 Unknown History lisinopril 40 mg tablet 40 mg PO DAILY 09/17/23 Unknown History Allergy/AdvReac Type Severity Reaction Status Date / Time latex Allergy Rash Verified 09/17/23 18:42 Sulfa (Sulfonamide AdvReac Unknown Verified 09/17/23 18:42 Antibiotics) Surgical History History of hysterectomy History of creation of ostomy Social History Smoking Status: Former smoker ROS ROS ED ROS Narrative Constitutional: Denies any fevers, chills, headaches, lightness, dizziness Eyes: Denies any changes to double vision blurry vision Cardiovascular: Denies chest pain or palpitations Respiratory: Denies coughing wheezing shortness of breath Abdomen: Denies abdominal pain nausea vomiting diarrhea but complains of leaking colostomy as noted above : Denies any urinary symptoms Neurological: Denies any numbness, weakness, tingling Musculoskeletal: Denies back pain Skin: Denies any rashes or lesions EXAM Physical Exam Narrative Exam Narrative: General: Patient lying in bed rest comfortably did not appear to be acute distress Head: Atraumatic, normocephalic Eyes: PERRL bilaterally, EOMI by, no conjunctival injection noted Neck: Soft, supple, trach midline Cardiovascular: Regular rate and rhythm no murmurs gallops rubs noted Respiratory: Clear to auscultation bilaterally Abdomen: Soft, nondistended, no tenderness palpation, bowel sounds present x 4, there is stool leaking around the colostomy bag itself noted Extremities: +5/5 strength noted in the bilateral upper and lower extremities, radial pulses +2/4 in the bilateral extremities Neurological: Patient following commands knew that she was at [facility] years 2023 Skin: Warm, dry, intact Const Vital Signs: 05/30/24 19:05 05/30/24 19:13 Temperature 98.2 F Temperature Source Oral Pulse Rate 89 Respiratory Rate 16 Respiratory Effort Normal Respiratory Pattern Normal Blood Pressure 159/72 H Blood Pressure Mean 101 Pulse Ox 94 Oxygen Delivery Method Room Air MDM MDM MDM Narrative Medical decision making narrative: Patient is a 84-year-old female who presented to the emerged part with concern of bowel protruding into her colostomy bag as well as stool leaking around the colostomy site. Once again the patient's abdominal exam is benign however we will get a CT abdomen pelvis with contrast to ensure there is no bowel protruding noted. Colostomy was replaced here in the emergency department by nursing and they noted that the colostomy bag itself was not adhered properly to the patient likely explanation for leaking stool. They noted that stoma site looked good and they did not believe there were any bowel protruding through this. Patient CBC reviewed and showed a white blood count 12,000 and she chronically has an elevated leukocytosis, hemoglobin was 12.6, platelet count normal at 189. Patient sodium normal 137, potassium normal 3.7, creatinine normal at 0.89. Patient's AST and ALT were 13 and 21 respectively. Patient's lipase normal at 23. Patient CT abdomen pelvis with IV contrast reviewed and showed postsurgical changes of the rectosigmoid and diverting colostomy left lower quadrant without evidence for proximal obstruction. Presacral soft tissue thickening possibly due to neoplastic and suspicious for pulmonary metastasis in the left lower lobe which is new finding since prior exam. Patient states that she is aware of the pulmonary finding as they are going to be treating her for this. Patient was given a hard copy of these results for her own record. Patient was advised to return with worsening symptoms or other concerns. She is back to follow-up with her oncology team as well as her primary care physician. She is agreeable this plan she would like to go home at this point time all question concerns answered she was discharged home in stable condition once again her colostomy bag was not properly applied when she changed out earlier she was reeducated on this by nursing. Lab Data Labs: Laboratory Results - last 24 hr 05/30/24 19:50 WBC 12.1 H RBC 4.25 Hgb 12.6 Hct 36.4 L MCV 85.6 MCH 29.6 MCHC 34.6 RDW Std Deviation 40.8 RDW Coeff of Grisel 13.2 Plt Count 189 MPV 8.4 Immature Gran % (Auto) 0.600 Neut % (Auto) 82.3 H Lymph % (Auto) 8.2 L [place] % (Auto) 7.3 Eos % (Auto) 1.2 Baso % (Auto) 0.4 Absolute Neuts (auto) 10.0 H Absolute Lymphs (auto) 0.99 Nucleated RBC % 0 Sodium 137 Potassium 3.7 Chloride 103 Carbon Dioxide 26.0 Anion Gap 8 BUN 28 H Creatinine 0.89 Estim Creat Clear Calc 41.36 Est GFR (MDRD) Af Amer 77 Est GFR (MDRD) Non-Af 64 BUN/Creatinine Ratio 31.4 H Glucose 136 H Calcium 9.4 Total Bilirubin 0.50 AST 13 L ALT 21 Alkaline Phosphatase 72 Total Protein 6.8 Albumin 3.6 Globulin 3.2 Albumin/Globulin Ratio 1.1 Lipase 23 Radiography Diagnostic Testing: Clinical Impression(s) from Imaging Studies Abdomen/Pelvis CT 05/30/24 19:16 IMPRESSION: Postsurgical changes of the rectosigmoid and diverting colostomy left lower quadrant without evidence for proximal obstruction. Presacral soft tissue thickening possibly due to neoplastic and suspicious for pulmonary metastasis in left lower lobe which is new finding since prior exam. 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 Return with worsening symptoms or other concerns. Print Language: Albanian Disposition Disposition: Home, Self Care
[2024-05-30 22:38] VITALS: BP 145/72; PULSE 81; RESP 16; TEMP 36.4; O2SAT 95
== END 2024-05-30 22:39 | disposition home or self-care (01) ==
PROVIDERS: Emergency Provider Emergency Medicine; PCP Internal Medicine; Visit Provider Emergency Medicine
DX: C18.9 Malignant neoplasm of colon, unspecified (principal); C78.00 Secondary malignant neoplasm of unspecified lung; Z93.3 Colostomy status; Z87.891 Personal history of nicotine dependence
CPT/HCPCS: 36591; 74177; 80053; 83690; 85025; 99285; Q9967; A4216

== ENCOUNTER 2024-08-17 10:14 | Emergency (ER) | payer MEDICARE, SELFPAY ==
[2024-08-17 10:14] VITALS: BP 163/73; PULSE 95; RESP 16; TEMP 36.8; O2SAT 95; BMI 26.3
--- NOTE | 2024-08-17 10:27 | EDS_ITS ---
HPI History of Present Illness Chief Complaint: Upper Extremity Injury Informant: patient Narrative Narrative: 84-year-old female with pain and swelling in her right hand without an obvious reason or injury. She states this has been for 3-4 days gradual. When asked where exactly it started, she states just my right hand and is not really sure exactly where it started but now it it involves the dorsum of her right hand, worse in the ulnar aspect and MCPJ areas, and involves her right little and ring fingers. She denies any systemic symptoms or fever/chills. She is right-hand dominant. She states anything she can think of that may or may not be related is that 4 days ago, her ostomy blew off, and she was cleaning stool up off of her floor at home with her hands. She does not have any abrasions or foreign bodies that she knows of, she had no bleeding or other injury that she can recall. She states she is currently on chemotherapy for a spot on her lung that is lung cancer. She does not have a known history of rheumatoid arthritis or gout. [facility] Medical History (Updated 08/17/24 @ 11:[address] Wilfred Doe MD) Lung cancer GERD (gastroesophageal reflux disease) Rectal cancer Hypothyroidism Hypertension Home Medications ?Medication ?Instructions ?Recorded ?Last Taken ?Type levothyroxine 25 mcg tablet 25 mcg PO DAILY 10/08/22 U nknown History amlodipine 5 mg tablet 5 mg PO DAILY 09/17/23 Unkno wn History lisinopril 40 mg tablet 40 mg PO DAILY 09/17/23 Unkn own History cephalexin 500 mg capsule 500 mg PO TID #30 CAPSULES 0 08/17/24 Unknown Rx Allergy/AdvReac Type Severity Reaction Status Date / Time latex Allergy Rash Verified 08/17/24 10:18 Sulfa (Sulfonamide AdvReac Unknown Verified 08/17/24 10:18 Antibiotics) Surgical History History of hysterectomy History of creation of ostomy Social History Smoking Status: Former smoker ROS ROS ED Constitutional Constitutional ED: Denies chills or fever(s) Cardiovascular Cardiovascular: Denies chest pain or racing heartbeat Respiratory/Chest Respiratory/Chest: Denies cough or dyspnea Gastrointestinal Gastrointestinal: Denies abdominal pain or vomiting Musculoskeletal Musculoskeletal: Reports extremity pain; Denies neck pain Integumentary Denies Abrasions, rash or wounds Neurologic Neurologic: Denies paresthesias or weakness EXAM Physical Exam Const Vital Signs: 08/17/24 10:14 Temperature 98.2 F Temperature Source Oral Pulse Rate 95 Respiratory Rate 16 Blood Pressure 163/73 H Blood Pressure Mean 103 Pulse Ox 95 Oxygen Delivery Method Room Air Positive well nourished and well developed General Appearance ED: well developed and NAD Neck full ROM and supple Resp normal respiratory effort Back/Spine normal ROM and normal to inspection Extremity Extremity Narrative: Right hand is swollen and erythematous, more toward the MCPJ's and more toward the ulnar aspect. There is no fluctuance or palpable abscess. Swelling and erythema in the ring finger PIPJ and proximal phalanx which are tender, and in the little finger MCPJ and proximal phalanx but no other fingers appear to be affected. She has limited range of motion with regards to flexion of the ring and little fingers related to this, but she can move the other ones well. She has no tenderness at the wrist, she can range the wrist and the elbow but states they hurt a little to do so, but supinating/pronating does not hurt her in the wrist, just the hand. There is no epitrochlear lymphadenopathy or lymphangitis, or redness proximal to the hand. Neuro oriented x3, no focal motor deficits and no sensory deficits noted Sensorium / Orientation: alert Psych mental status grossly normal and thought process normal Skin no wounds Rashes: no rashes MDM MDM MDM Narrative Medical decision making narrative: The appearance of this resembles cellulitis, it is involving part of the dorsum of her hand more the ulnar aspect, as well as the proximal aspect of fingers 4-5 and there is no clear nidus for infection. Occult injury in the differential so obtain three-view x-ray to screen for that as well as subcutaneous air, on my interpretation the show none of that. Labs show white blood count in the normal range but at the high end, there is a leftward shift but no bands. Her ESR is elevated at 34 which is mild/barely. CRP is much more elevated at 60 again this is nonspecific. Not going to treat her empirically for infection, she is given IV Ancef here but I do not think she needs to be admitted to the hospital; I do not think there is anything drainable here nor is she septic. I think a trial of outpatient antibiotics and close outpatient follow-up is reasonable, discussed this with her and she is comfortable with that plan. Offered an Saji wrap prior to discharge for her hand. Lab Data Attestation: I reviewed the patient's lab results. Labs: Laboratory Tests 08/17/24 Range/Units 10:50 WBC 10.1 (4.4-11.0) K/mm3 RBC 3.43 L (4.2-5.4) M/mm3 Hgb 11.0 L (12.0-15.0) g/dL Hct 30.9 L (37-47) % MCV 90.1 (81-99) fL MCH 32.1 H (27.0-32.0) pg MCHC 35.6 (32-36) g/dL RDW Std Deviation 57.0 H (35.1-43.9) fl RDW Coeff of Grisel 18.7 H (11.6-14.6) % Plt Count 177 (150-450) K/mm3 MPV 8.6 (6.2-12.0) fl Immature Gran % (Auto) 0.600 (0.0-0.9) % Neut % (Auto) 81.6 H (47-70) % Lymph % (Auto) 5.3 L (19-41) % [place] % (Auto) 11.5 H (0-10) % Eos % (Auto) 0.6 (0-5) % Baso % (Auto) 0.4 (0-1) % Absolute Neuts (auto) 8.3 H (2.0-7.7) X10^3/uL Absolute Lymphs (auto) 0.54 L (0.83-4.51) X10^3/uL Nucleated RBC % 0 (0-5) % ESR 34 H (0-30) mm/hr Sodium 135 (133-145) mmol/L Potassium 3.8 (3.3-5.1) mmol/L Chloride Direct 102 (96-108) mmol/L Carbon Dioxide 17.5 L (22.0-29.0) mmol/L Anion Gap 15 (5-15) BUN 25 H (4-19) mg/dL Creatinine 0.92 (0.70-1.20) mg/dL Estim Creat Clear Calc 39.65 L (50-250) ml/min Est GFR (MDRD) Non-Af 61 (>60) BUN/Creatinine Ratio 27.1 H (10-20) RATIO Glucose 110 H (70-99) mg/dL Uric Acid 4.4 (2.6-6.0) mg/dL Calcium 8.9 (7.6-11.0) mg/dL C-React Prot Ext Range 60.50 H (0.0-3.0) mg/L Discharge Plan Triage Chief Complaint: Upper Extremity Injury ED Provider: Wilfred Doe Dx/Rx/DC Orders Clinical Impression: Cellulitis of right hand Instructions: ED Cellulitis Prescriptions: New cephalexin 500 mg capsule 500 mg PO TID Qty: 30 0RF No Action levothyroxine 25 mcg tablet 25 mcg PO DAILY Patient Comments: take 1 tablet by mouth once daily ON AN EMPTY STOMACH for THYROID amlodipine 5 mg tablet 5 mg PO DAILY lisinopril 40 mg tablet 40 mg PO DAILY Primary Care Provider: Elke Painting Referrals: Elke Painting MD [Primary Care Provider] - 3-5 Days Print Language: Tamazight Disposition Disposition: Home, Self Care
[2024-08-17 10:56] LABS: Absolute Lymphocyte Count 0.54 X10^3/uL (0.83-4.51); Absolute Neutrophil Count 8.3 X10^3/uL (2.0-7.7); Basophil# 0.04 X10^3/uL; Basophil% 0.4 % (0-1); Eosinophil# 0.06 X10^3/uL; Eosinophils% 0.6 % (0-5); Hematocrit 30.9 % (37-47); Lymphocyte # 0.54 X10^3/ul (0.83-4.51); Lymphocyte % 5.3 % (19-41); Mean Corp Hgb Conc 35.6 g/dL (32-36); Mean Corpuscular Hgb 32.1 pg (27.0-32.0); Mean Corpuscular Volume 90.1 fL (81-99); Mean Platelet Vol. 8.6 fl (6.2-12.0); Monocyte# 1.17 X10^3/uL; Monocyte% 11.5 % (0-10); NRBC Flagged by Analyzer 0 % (0-5); Neutrophil # 8.26 X10^3/uL (2.7-7.7); Neutrophil % 81.6 % (47-70); POSITIVE DIFFERENTIAL YES; Platelet Count 177 K/mm3 (150-450); RBC Distribution Width CV 18.7 % (11.6-14.6); Red Blood Count 3.43 M/mm3 (4.2-5.4); White Blood Count 10.1 K/mm3 (4.4-11.0)
[2024-08-17 11:17] LABS: Erythrocyte Sedimentation Rate 34 mm/hr (0-30)
--- NOTE | 2024-08-17 11:20 | RAD_ITS ---
EXAM: XR Right Hand Complete, 3 or More Views CLINICAL INDICATION: TECHNIQUE: Frontal, lateral and oblique views of the right hand. COMPARISON: No relevant prior studies available. FINDINGS: BONES/JOINTS: See below. SOFT TISSUES: Soft tissue swelling without acute fracture. No radiopaque foreign body. RAD/Hand Min 3 Views IMPRESSION: 1. Soft tissue swelling without acute fracture. 2. If symptoms persist, further evaluation with CT is recommended. Reading Location: [facility]
[2024-08-17 11:45] LABS: Anion Gap 15 (5-15); BUN 25 mg/dL (4-19); BUN/Creat Ratio 27.1 RATIO (10-20); Calcium 8.9 mg/dL (7.6-11.0); Carbon Dioxide 17.5 mmol/L (22.0-29.0); Chloride 102 mmol/L (96-108); Creatinine, Serum 0.92 mg/dL (0.70-1.20); EST Glomerular Filtration Rate 61 (>60); Estimated Creatinine Clearance 39.65 ml/min (50-250); Glucose 110 mg/dL (70-99); Potassium 3.8 mmol/L (3.3-5.1); Sodium Level 135 mmol/L (133-145)
[2024-08-17 11:52] LABS: Uric Acid 4.4 mg/dL (2.6-6.0)
--- NOTE | 2024-08-17 12:00 | CM.ED ---
Social work This SW entered patient's room, introducing self and role at [facility]. Patient confirmed having patient's daughter, Lucila Harper, listed as primary HCPOA. Patient expressed understanding that patient's advance directives were not on file at [facility] and expressed intent to bring them into [facility] soon. Mary Ann Lazar, SOCIAL SCIENCE INSTRUCTOR, CORPORATE COMPLIANCE DIRECTOR
[2024-08-17] MEDS: Cefazolin 1 GM/50 ML BAG IV (12:25)
[2024-08-17 12:30] VITALS: BP 142/74; PULSE 89; RESP 16; TEMP 36.3; O2SAT 97
== END 2024-08-17 13:06 | disposition home or self-care (01) ==
PROVIDERS: Emergency Provider Emergency Medicine; PCP Internal Medicine; Visit Provider Emergency Medicine
DX: L03.113 Cellulitis of right upper limb (principal); Z87.891 Personal history of nicotine dependence
CPT/HCPCS: 73130; 80048; 84550; 85025; 85652; 86140; 96365; 99282

== ENCOUNTER → 2024-10-16 | Outpatient (CLI) | payer MEDICARE, SELFPAY ==
--- NOTE | 2024-10-16 11:03 | WOUNDNOTE ---
Was asked to see patient for questions about ostomy supplies. Pt states she has had her stoma for approx 1 1/2. states she has been doing well with appliance changes but has had more discomfort with the appliances since switching to [employer]. pt had been using a convex appliance. stoma measures approx 1 1/4. 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 pt has a hernia belt but has never used it because she was not sure how to apply it. demonstrated how to place the belt. Pt prefers [employer] appliances. would recommend using a flat appliance since stoma is well budded and pt has the parastomal hernia. the convex appliances can actually push against the hernia and cause more discomfort. can still order pre-cut appliances since that is what patient prefers. order numbers given to daughter for 2 piece flat pre-cut [employer] appliance. pt states the flat appliance is much more comfortable. pt and daughter very appreciative of care and is aware to call for further needs or concerns.
== END | disposition home or self-care (01) ==
LOC: ET 09:46
PROVIDERS: PCP Internal Medicine; Referring Provider Internal Medicine Hematology & Oncology; Visit Provider Internal Medicine Hematology & Oncology
DX: C20 Malignant neoplasm of rectum (principal)
CPT/HCPCS: 99211; G0463